=== PATIENT | male | born 1970 | race Caucasian/White ===

== ENCOUNTER 2024-12-30 14:10 | Emergency (ER) | payer SELFPAY ==
[~2024-12-30] VITALS: Ht 180.3 cm; Wt 132.0 kg
[2024-12-30 14:23] VITALS: TEMP 36.9; O2SAT 97
[2024-12-30] MEDS: LIDOCAINE HCL 1% 20ML VIAL INL ONE (16:41)
[2024-12-30] MEDS: HYDROCODONE/ACETAMINOPHEN 5/325MG TABLET PO ONE (16:42)
[2024-12-30] MEDS: TETANUS, DIPHTHERIA, PERTUSSIS VAC/PF 0.5ML (>10YR OLD) IM ONE (16:49)
[2024-12-30] MEDS ORDERED: BO1 TP (18:11)
[2024-12-30] MEDS ORDERED: IBUP-1455 MT (18:11)
[2024-12-30] MEDS: BACITRACIN ZINC OINT UDPKT TOP ONE (18:15)
[2024-12-30 19:05] VITALS: BP 142/89; PULSE 76; RESP 16; O2SAT 100
== END 2024-12-30 19:14 | disposition home or self-care (01) ==
LOC: ER 14:10
DX: S61.012A Laceration without foreign body of left thumb without damage to nail, initial encounter (principal); X58.XXXA Exposure to other specified factors, initial encounter; Y93.89 Activity, other specified; Y92.89 Other specified places as the place of occurrence of the external cause; Y99.8 Other external cause status
CPT/HCPCS: 73110; 90715; 12002; 90471; 99283; J2003; Z7610 ×3